=== PATIENT | male | born 1960 | race Caucasian/White ===

== ENCOUNTER → 2017-06-01 | Outpatient (CLI) | payer BC ==
[~2017-06-01] MED LIST: OXYC-199 PO
--- NOTE | 2017-06-01 11:30 | Diagnostic Imaging Report ---
Indication: Right-sided testicular pain after lifting a heavy object. Findings: The right testicle is smaller than the left measuring 3.3 x 1.5 x 2.9 cm compared with left testicle measuring 4.4 x 2.3 x 2.9 cm. The left testicle demonstrates a homogeneous echotexture. No discrete testicular mass is seen. There is blood flow present. The right testicle does show some heterogeneity to the parenchyma but a normal blood flow is present. No discrete testicular mass is seen. There is no hydrocele present. The epididymis are unremarkable apart from a 5 mm cyst involving the right epididymal head. Right groin was evaluated as well. No hernia is detected. Impression: 1. No evidence of testicular mass or vascular compromise. The right testicle does show some heterogeneity, which can be seen with orchitis. No discrete testicular mass is seen. Followup can be performed to confirm clearing. 2. Tiny right epididymal head cyst. 3. No evidence of hernia. Dictated by: Dictated on workstation # [id number]
== END ==
LOC: RAD 10:44
PROVIDERS: ATTEND Surgery
DX: N50.811 Right testicular pain (principal); X50.0XXA Overexertion from strenuous movement or load, initial encounter
CPT/HCPCS: 76870

== ENCOUNTER 2017-06-29 11:25 | Outpatient (CLI) | payer BC | END 2017-06-29 11:40 | disposition home or self-care (01) | LOC: SLEEP 11:25 | PROVIDERS: ATTEND Nurse Practitioner Family | DX: G47.33 Obstructive sleep apnea (adult) (pediatric) (principal); R06.83 Snoring; G47.10 Hypersomnia, unspecified ==

== ENCOUNTER → 2018-07-12 | Outpatient (CLI) | payer BC ==
--- NOTE | 2018-07-12 11:28 | Diagnostic Imaging Report ---
PROCEDURE: US right lower extremity venous. TECHNIQUE: Multiple real-time grayscale images were obtained over the right lower extremity in various projections. Additional spectral analysis and color Doppler duplex images were also obtained. INDICATION: Right leg pain. Patient had recent right foot and ankle surgery 2 weeks ago. There is no evidence of a right lower extremity DVT. Right lower extremity deep venous system shows normal compressibility with normal response to augmentation and Valsalva. No fluid collection or mass is seen. IMPRESSION: No evidence of right lower extremity DVT. Dictated by: Dictated on workstation # [id number]
== END ==
LOC: RAD 10:47
PROVIDERS: ATTEND Orthopaedic Surgery
DX: M79.604 Pain in right leg (principal); Z98.890 Other specified postprocedural states